=== PATIENT | male | born 1945 | race Caucasian/White ===

== ENCOUNTER 2024-07-07 07:58 | Outpatient (CLI) | payer MEDICARE ==
[2024-07-07 08:55] LABS: #Basophils 0.08 10x3/uL (0.0-0.2); %Basophils 1.3 % (0.0-1.0); %Eosinophils 8.4 % (0.0-10.0); %Lymphocytes 14.8 % (21.0-51.0); %Monocytes 6.6 % (0.0-10.0); %Neutrophils 68.7 % (42.0-75.0); Hematocrit 41.9 % (42.0-52.0); Hemoglobin 13.3 g/dL (14.0-18.0); Mean Corpuscular HGB CONC 31.7 g/dL (32.0-36.0); Mean Corpuscular Hemoglobin 28.6 pg (27.0-31.0); Mean Corpuscular Volume 90.1 fL (78.0-98.0); Mean Platelet Volume 9.6 fL (7.4-10.4); Platelet Count 216 10x3/uL (130-400); RBC Distribution Width 15.3 % (11.5-14.5); Red Blood Cell (RBC) Count 4.65 mill/uL (4.70-6.10)
== END 2024-07-07 07:59 | disposition home or self-care (01) ==
LOC: LABBT 07:58
PROVIDERS: ATTEND Orthopaedic Surgery Hand Surgery
DX: Z01.818 Encounter for other preprocedural examination (principal); S62.641B Nondisplaced fracture of proximal phalanx of left index finger, initial encounter for open fracture; S62.643B Nondisplaced fracture of proximal phalanx of left middle finger, initial encounter for open fracture; S62.645B Nondisplaced fracture of proximal phalanx of left ring finger, initial encounter for open fracture
CPT/HCPCS: 85025; 93005; 93010

== ENCOUNTER 2024-07-10 14:43 | Observation (INO) | payer MEDICARE ==
[2024-07-10] MEDS ORDERED: CEFAZOLIN 2 GM VIAL ONE (18:13)
[2024-07-10] MEDS ORDERED: HYDROcodone/Acetaminophen 5/325 mg Tablet PO PRN (18:55)
[2024-07-10] MEDS ORDERED: traMADol HCl 50 MG TAB PO PRN (18:55)
[2024-07-10] MEDS ORDERED: Morphine 2 MG/ML VIAL SLOW IVP PRN (18:55)
[2024-07-10] MEDS ORDERED: Ondansetron PF 4 MG/2 ML Vial IVP PRN (18:55)
[2024-07-10] MEDS ORDERED: Promethazine HCl 25 MG/ML VIAL IM PRN (18:55)
[2024-07-10] MEDS ORDERED: Acetaminophen/Codeine 30-300mg Tablet PO PRN (18:55)
[2024-07-10] MEDS ORDERED: Communication Order-Pharmacy FS SCH (19:00)
[2024-07-10 20:48] VITALS: BMI 16.9
[2024-07-10] MEDS: TETANUS, DIPHTHERIA TOX,ADULT (TDVAX) 0.5 ML VIAL IM ONE (21:43)
[2024-07-10] MEDS: Aspirin 81 mg Enteric Coated Tablet PO SCH (21:45)
[2024-07-11 05:15] VITALS: BP 133/67; TEMP 98.1
[2024-07-11] MEDS ORDERED: PROPOFOL 20 ML ONE (06:37)
[2024-07-11] MEDS ORDERED: fentaNYL PF 100 MCG/2 ML SYRINGE ONE (06:37)
[2024-07-11] MEDS ORDERED: Lidocaine 1% PF 5 ML VIAL ONE (06:39)
[2024-07-11] MEDS ORDERED: ePHEDrine Sulfate 50 MG/10 ML VIAL ONE (07:03)
[2024-07-11] MEDS ORDERED: Dexamethasone 4 mg/ml Vial ONE (07:12)
[2024-07-11] MEDS ORDERED: Ondansetron PF 4 MG/2 ML Vial ONE (07:12)
[2024-07-11] MEDS ORDERED: Bacitracin Zinc Ointment 30 gm TUBE ONE (07:13)
[2024-07-11] MEDS ORDERED: Bupivacaine PF 0.5% 30 ML VIAL ONE (07:13)
[2024-07-11] MEDS ORDERED: Betamet Acet/Betamet Na Ph 30 MG/5 ML VIAL ONE (07:21)
[2024-07-11] MEDS ORDERED: Ketorolac Tromethamine 30 MG (1 mL) VIAL ONE (07:57)
[2024-07-11] MEDS ORDERED: PHENYLEPHRINE-NS 100 MCG/ML 10 ML SYRINGE ONE (08:01)
== END 2024-07-11 11:26 | disposition home or self-care (01) ==
LOC: SDC 14:43 → T4-B 19:17
PROVIDERS: ADMIT Orthopaedic Surgery Hand Surgery; ATTEND Orthopaedic Surgery Hand Surgery
PROC: 0RPX04Z Removal of Internal Fixation Device from Left Finger Phalangeal Joint, Open Approach (ICD-10-PCS; principal; 2024-07-10)
PROC: 0RNX0ZZ Release Left Finger Phalangeal Joint, Open Approach (ICD-10-PCS; 2024-07-10)
DX: S62.641D Nondisplaced fracture of proximal phalanx of left index finger, subsequent encounter for fracture with routine healing (principal); S62.643D Nondisplaced fracture of proximal phalanx of left middle finger, subsequent encounter for fracture with routine healing; S62.645D Nondisplaced fracture of proximal phalanx of left ring finger, subsequent encounter for fracture with routine healing; S66.902D Unspecified injury of unspecified muscle, fascia and tendon at wrist and hand level, left hand, subsequent encounter; J44.9 Chronic obstructive pulmonary disease, unspecified; Z86.16 Personal history of COVID-19; Z79.899 Other long term (current) drug therapy; X58.XXXD Exposure to other specified factors, subsequent encounter
CPT/HCPCS: 20680; 26520; 73140; J0665; J0702; J1100; J1885; J2405; J2704